=== PATIENT | female | born 1935 | race Caucasian/White ===

== ENCOUNTER 2016-11-06 13:19 | Outpatient (CLI) | payer OTHER | END 2016-11-06 20:23 | disposition home or self-care (01) | LOC: SMA 13:19 | PROVIDERS: ATTEND Specialist | DX: Z12.31 Encounter for screening mammogram for malignant neoplasm of breast (principal) | CPT/HCPCS: 77067; G0202 ==

== ENCOUNTER 2017-12-08 13:29 | Outpatient (CLI) | payer OTHER | END 2017-12-08 20:26 | disposition home or self-care (01) | LOC: SMA 13:29 | PROVIDERS: ATTEND Specialist | DX: Z12.31 Encounter for screening mammogram for malignant neoplasm of breast (principal) | CPT/HCPCS: 77067 ==